=== PATIENT | male | born 1960 | race African-American/Black ===

== ENCOUNTER 2019-06-01 13:14 | Emergency (ER) | payer MEDICARE, OTHER | END 2019-06-01 13:57 | disposition left against medical advice (07) | LOC: ER 13:14 | DX: I10 Essential (primary) hypertension (principal); Z53.21 Procedure and treatment not carried out due to patient leaving prior to being seen by health care provider ==

== ENCOUNTER 2025-02-12 17:24 | Emergency (ER) | payer OTHER, MEDICAID ==
[~2025-02-12] VITALS: Ht 160 cm; Wt 95.4 kg
[2025-02-12] MEDS: SODIUM CHLORIDE 0.9% 1,000 ML IV ONE (02:45)
[2025-02-12 19:23] LABS: Hematocrit 47.6 % (41.0-53.0); Hemoglobin 16.2 g/dL (13.5-17.5); Mean Corpuscular Hemoglobin 33.1 pg (28.0-32.0); Mean Corpuscular Volume 97.3 fL (80.0-100.0); Nucleated Red Blood Cells % 0.0 %
[2025-02-12 19:42] LABS: Chloride 102 mmol/L (98-107); Potassium 4.1 mmol/L (3.5-5.1); Sodium 140 mmol/L (136-145)
[2025-02-12 19:43] LABS: Anion Gap 10 (5-15); Carbon Dioxide 28 mmol/L (20-31)
[2025-02-12 19:44] LABS: Calcium 9.3 mg/dL (8.7-10.4)
[2025-02-12 19:48] LABS: BUN/Creatinine Ratio 16.9 (10.0-20.0); Blood Urea Nitrogen 14 mg/dL (9-23)
--- NOTE | 2025-02-12 19:50 | ED.PDOC ---
History of Present Illness HPI Comments 64-year-old, bed-bound male is brought in by ambulance from private residence with spouse for chief complaint of seizure. Patient is a poor historian. 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 Per spouse, patient is reported to have had sudden, unprovoked, and atraumatic onset of seizure-like activity, this afternoon, that lasted a few minutes induration. Activity was reported to have been characterized by generalized body and jerking and spasms, snoring respirations, foaming at the mouth with blood mixed with spit, purple face discoloration, and shut eyelids. No reported signs of trauma or urine incontinence. Patient stated on not taking Depakote medication for over a month, now, due to adverse effect on making him sleepy. No further acute symptoms reported. REVIEW OF SYSTEMS: No fever, no chills, HEENT: No neck pain, no blurred vision Cardiac: No chest pain. No palpitations. Lungs: No shortness of breath, GI: No abdominal pain, no vomiting Skin: No rash, no wound Neuro: Seizures. No headache, no dizziness, no syncope PHYSICAL EXAM: General: Awake, alert and oriented. No acute distress. Skin: Skin in warm, dry and intact without rashes or lesions. HEENT: The head is normocephalic and atraumatic. Conjunctivae are clear without exudates or hemorrhage. Sclera is non-icteric. Neck: Normal range of motion. No JVD. Cardiac: Regular rate Respiratory: No signs of respiratory distress. No Stridor. Extremities: Bilateral lower extremity atrophy with the surgical scars. Neurological: The patient is awake, alert and oriented to person, place, and time with normal speech. Speech is clear. There is no facial asymmetry. Hard of hearing. Psychiatric: Appropriate mood and affect. Good judgement and insight. 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 Was a procedure done?: No EKG EKG : Pulse Rate (adult): 95 [place]: Normal Cardiac Rhythm: NSR Block: None Hypertrophy: None ST: Normal Comments No STEMI Differential Dx Considerations may include: Differential diagnoses considered include but are not limited to epilepsy/seizure disorder, NETWORK SUPPORT ENGINEER infection, electrolyte disturbance, CVA, TBI, drug toxicity or overdose, hypoxia, hypertensive emergency, brain tumor/mass, syncope, movement disorder, other X-Ray, Labs, Meds, VS Vital Signs Date Time Temp Pulse Resp B/P (MAP) Pulse Ox O2 Delivery O2 Flow Rate FiO2 02/13/25 02:46 98.8 94 16 146/103 (117) 96 98.8 02/13/25 02:04 93 16 96 Room Air* 0 21 02/13/25 01:10 99.5 91 19 147/91 (109) 97 99.5 02/12/25 21:29 95 02/12/25 20:58 95 02/12/25 18:15 99.1 143 16 167/88 94 99.1 Lab Test 02/12/25 19:00 Range/Units White Blood Count 10.0 4.4-10.8 10^3/uL Red Blood Count 4.89 4.5-5.90 10^6/uL Hemoglobin 16.2 13.5-17.5 g/dL Hematocrit 47.6 41.0-53.0 % Mean Corpuscular Volume 97.3 80.0-100.0 fL Mean Corpuscular Hemoglobin 33.1 H 28.0-32.0 pg Mean Corpuscular Hemoglobin Concent 34.0 32.0-36.0 g/dL Red Cell Distribution Width 15.5 H 11.8-14.3 % Platelet Count 265 140-450 10^3/uL Mean Platelet Volume 9.2 6.9-10.8 fL Neutrophils (%) (Auto) 84.2 H 37.0-80.0 % Lymphocytes (%) (Auto) 9.2 L 10.0-50.0 % Monocytes (%) (Auto) 6.0 0.0-12.0 % Eosinophils (%) (Auto) 0.4 0.0-7.0 % Basophils (%) (Auto) 0.2 0.0-2.0 % Neutrophils # (Auto) 8.4 1.6-8.6 10 ^3/uL Lymphocytes # (Auto) 0.9 0.4-5.4 10 ^3/uL Monocytes # (Auto) 0.6 0-1.3 10 ^3/uL Eosinophils # (Auto) 0 0-0.8 10 ^3/uL Basophils # (Auto) 0 0-0.2 10 ^3/uL Nucleated Red Blood Cells 0.0 % Sodium Level 140 136-145 mmol/L Potassium Level 4.1 3.5-5.1 mmol/L Chloride Level 102 98-107 mmol/L Carbon Dioxide Level 28 20-31 mmol/L Anion Gap 10 5-15 Blood Urea Nitrogen 14 9-23 mg/dL Creatinine 0.83 0.700-1.30 mg/dL Glomerular Filtration Rate Calc 98 >90 mL/min BUN/Creatinine Ratio 16.9 10.0-20.0 Serum Glucose 168 H 74-106 mg/dL Calcium Level 9.3 8.7-10.4 mg/dL [place] [id number] Ph: [phone] DIAGNOSTIC IMAGING Diagnostic Imaging Report : [id number] Signed PATIENT: LEFTY ANSARI ACCT: [id number] UNIT: [id number] : 1960 LOC: ER ROOM / BED: / AGE / SEX: 64 / M ADM STATUS: REG ER SERVICE 08 ORDERING PHYSICIAN: LATANYA HOPPER MD PROCEDURE(s): HWOCT - HEAD WITHOUT CONTRAST REASON: New onset seizure ORDER NUMBER(s): [id number], ACCESSION NUMBER(s): [id number] Indication: New onset seizure Comparison: None Technique: Utilizing a multislice CT scanner, a CT scan of the brain was performed without intravenous contrast. Coronal and sagittal reformatted images. All CT scans at this facility use dose modulation, iterative reconstruction, and/or weight based dosing when appropriate to reduce radiation dose to as low as reasonably achievable. Findings: There is no acute infarct, intracranial hemorrhage, or mass effect. There is no hydrocephalus or significant midline shift. There is moderate chronic microvascular ischemic changes and moderate to severe parenchymal volume loss. No acute, depressed calvarial fractures. No large scalp hematomas. Impression: 1. No acute intracranial process. ATED BY: JUAN CARCAMO MD DICTATED DATE/TIME: 02/12/252311 SIGNED BY: JUAN CARCAMO MD SIGNED DATE/TIME: 02/12/252311 CC: Time of 1ST Reevaluation: 18:30 Reevaluation 1ST: Unchanged Time of 2ND Reevaluation: 20:55 (Patient endorsement of chest pain) Reevaluation 2ND: Patient Education/Counseling: Treatment, Other (Need for admission) Family Education/Counseling: Treatment, Other (Need for admission) SEPSIS Sepsis Screen Date sepsis recognized/suspect: Feb 12, 2025 Time Sepsis recognized/suspect: 1735 Recent Procedure: No On Antibiotic Therapy: No Respiratory Rate >20: No Heart Rate >90: No Temp<36 C (96.8 F) or >38.3 C: No SBP <90 or MAP <65 mmHG: No New Acute Mental Status Change: No Is the patient on CPAP, BIPAP,: No Physician Orders Urinalysis (02/12/25 18:07) Seizure Precautions (02/12/25 ) Shovel Log Loader Operator (02/12/25 ) Electrocardigram (02/12/25 21:00) Head Without Contrast (02/12/25 22:09) Imaging Transfer Request (02/13/25 01:14) Vital Signs Date Time Temp Pulse Resp B/P (MAP) Pulse Ox O2 Delivery O2 Flow Rate FiO2 02/13/25 02:46 98.8 94 16 146/103 (117) 96 98.8 02/13/25 02:04 93 16 96 Room Air* 0 21 02/13/25 01:10 99.5 91 19 147/91 (109) 97 99.5 02/12/25 21:29 95 02/12/25 20:58 95 02/12/25 18:15 99.1 143 16 167/88 94 99.1 Laboratory Tests Test 02/12/25 19:00 White Blood Count 10.0 10^3/uL (4.4-10.8) Departure 1 Departure Time of Disposition: 23:19 Impression: Primary Impression: Breakthrough seizure Disposition: 02 SHORT TERM HOSPITAL Condition: Stable Comments MDM: 64-year-old male with uncontrolled seizure disorder. No witnessed seizure here in the emergency department. All patient's transfer to [facility] for further treatment and observation Discussed with Dr. Dodd from [place] @0000 case #[id number] Extensive evaluation was performed in attempt to identify or rule out: (See differential diagnosis section) The following tests were ordered, and results were reviewed by me and discussed with patient: (See diagnostic results section) The following test were independently interpreted by me: EKG I reviewed and agreed with the following test results read by other providers: N/A I reviewed the following notes from the pt's past medical encounters: June 01, 2019 encounter for high blood pressure Additional information was gathered from interviewing the following independent historians: EMS personnel, Discussion of management or test interpretation with external physician/other qualified health respiratory care program director: Dr. Dodd Addressed one or more chronic illnesses with severe exacerbation, progression, or side effects of treatment: Seizure disorder Decision regarding hospitalization or escalation of hospital level of care: Risk and benefits of admission for further treatment of patient's condition was considered. Due to patient's current clinical condition, high risk of decline and poor outcome if discharged and need for further inpatient management and monitoring, patient will be admitted to the hospital. Drug therapy requiring intensive monitoring for toxicity: IV Keppra Parenteral controlled substances: N/A Decision regarding elective major surgery with identified patient or procedure risk factors: N/A Decision regarding emergency major surgery: N/A Decision not to resuscitate or to de-escalate care because of poor prognosis: N/A Diagnosis or treatment significantly limited by social determinants of health: N/A Critical Care Note Critical Care Time?: No Stability Stability form required: No Heart Score Heart Score: Heart Score Response (Comments) Value History N/A 0 EKG N/A 0 Age N/A 0 Risk Factors N/A 0 Troponin N/A 0 Total 0 I personally scribed for LATANYA HOPPER MD ([email or web address]) on 02/12/25 at 19:50. Electronically submitted by Ray Stevenson ([email or web address]). I personally scribed for LATANYA HOPPER MD ([email or web address]) on 02/12/25 at 20:43. Electronically submitted by Ray Stevenson ([email or web address]). I personally scribed for LATANYA HOPPER MD ([email or web address]) on 02/12/25 at 21:29. Electronically submitted by Ray Stevenson ([email or web address]). I personally scribed for LATANYA HOPPER MD ([email or web address]) on 02/12/25 at 21:31. Electronically submitted by Ray Stevenson ([email or web address]). LATANYA HOPPER MD Feb 12, 2025 19:50
[2025-02-12 20:02] LABS: Glucose 168 mg/dL (74-106)
--- NOTE | 2025-02-12 21:13 | ECG ---
[facility] Test Date: 2025-02-12 Test Time: 20:58:12 Pat Name: LEFTY ANSARI Department: ED Room: Gender: M Netbackup Admin: : 1960 Requested By: LATANYA HOPPER Order Number: [id number] Reading MD: Anil Curry Measurements Intervals [place] Rate: 95 P: 26 RI: 161 QRS: -20 QRSD: 81 T: 34 QT: 343 QTc: 431 Interpretive Statements Sinus rhythm Borderline left axis deviation Abnormal R-wave progression, early transition Electronically Signed On 02-12-2025 22:14:07 PDT by Anil Curry Please click the below link to view image of tracing.
--- NOTE | 2025-02-12 23:15 | DVH ---
Indication: New onset seizure Comparison: None Technique: Utilizing a multislice CT scanner, a CT scan of the brain was performed without intravenou s contrast. Coronal and sagittal reformatted images. All CT scans at this facility use dose modulation, iterative reconstruction, and/or weight based dosi ng when appropriate to reduce radiation dose to as low as reasonably achievable. Findings: There is no acute infarct, intracranial hemorrhage, or mass effect. There is no hydrocephalus or sign ificant midline shift. There is moderate chronic microvascular ischemic changes and moderate to severe parenchymal volume l oss. No acute, depressed calvarial fractures. No large scalp hematomas. Impression: 1. No acute intracranial process.
[2025-02-13 02:04] VITALS: PULSE 93; RESP 16; O2SAT 96
[2025-02-13 02:46] VITALS: BP 146/103; PULSE 94; RESP 16; TEMP 98.8; O2SAT 96
== END 2025-02-13 02:54 | disposition short-term general hospital (02) ==
LOC: EDBD 17:24 → EDUNIT# 17:24 → ER 17:28
DX: G40.909 Epilepsy, unspecified, not intractable, without status epilepticus (principal); E11.9 Type 2 diabetes mellitus without complications; I10 Essential (primary) hypertension; Q78.0 Osteogenesis imperfecta; Z74.01 Bed confinement status
CPT/HCPCS: 36415; 70450; 80048; 85025; 93005